=== PATIENT | female | born 2000 | race Caucasian/White ===

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

== ENCOUNTER 2021-01-06 13:30 | Observation (INO) | payer MEDICAID, SELFPAY ==
[2021-01-06] VITALS (13 sets, daily range): BP systolic 94–145; BP diastolic 56–103; PULSE 77–108; RESP 16–18; TEMP 36.2–37.3; O2SAT 93–98; BMI 42.3; BMI 46.4
--- NOTE | 2021-01-06 | APP_PTH ---
PATIENT: NARESH KELLEY LOC: [facility] U#:[id number] AGE/SX: 20/F ROOM: [facility]314 RE01/06/[address]: Dr. Reji Santoro MD : 2000 BED: 1 DIS: 01/07/2021 SPEC #: [id number] RECD: 01/07/21 06:19 STATUS: LY EMA #: [id number] MELVIN: 01/06/21 00:[address]: Reji Santoro DEPT: SURGICAL PATHOLOGY RECD BY: Thierno Raymond ENTERED: 01/07/21 08:31 SP TYPE: APPENDIX OTHR DR: No Primary Care Phys Tissues: Appendix, NOS Procedures: Surgery Specimen Level III HEADER OPERATION: Laparoscopic appendectomy PRE-OP DIAGNOSIS: Acute appendicitis TISSUE SUBMITTED: Appendix MICROSCOPIC DIAGNOSIS Appendix, appendectomy: Acute appendicitis and periappendicitis. ALFA:mayito 01/08/2021 MICROSCOPIC DESCRIPTION Slides are reviewed. GROSS DESCRIPTION Received in fixative is one container labeled with the patient's name and designated appendix. The specimen consists of a C-shaped appendix measuring 7.5 cm in length and up to 1 cm in diameter. The attached periappendiceal adipose tissue measures up to 2 cm in width. The serosa is covered with patel, purulent exudate. No obvious perforation is identified. The mucosa is congested and hemorrhagic. No fecalith is identified. Internal Consultant sections are submitted in one cassette. / SJ:mayito 01/07/21 TC:2 CPT: 98235
[2021-01-06 13:49] LABS: Mucous, Urine 0 SEEN /hpf (<or=2+); Red Blood Cells-Urine 0 SEEN /hpf (0-5); White Blood Cells 0 SEEN /hpf (0-5)
[2021-01-06 13:50] LABS: Absolute Lymphocyte Count 1.86 X10^3/uL (0.83-4.51); Absolute Neutrophil Count 14.4 X10^3/uL (2.0-7.7); Basophil# 0.04 X10^3/uL; Basophil% 0.2 % (0-1); Eosinophil# 0.49 X10^3/uL; Eosinophils% 2.7 % (0-5); Hemoglobin 14.7 g/dL (12.0-15.0); Lymphocyte # 1.86 X10^3/ul (0.83-4.51); Lymphocyte % 10.4 % (19-41); Mean Corp Hgb Conc 34.2 g/dL (32-36); Mean Corpuscular Hgb 29.2 pg (27.0-32.0); Mean Corpuscular Volume 85.5 fL (81-99); Mean Platelet Vol. 9.5 fl (6.2-12.0); Monocyte# 0.99 X10^3/uL; Monocyte% 5.5 % (0-10); NRBC Flagged by Analyzer 0 % (0-5); Neutrophil # 14.41 X10^3/uL (2.7-7.7); Neutrophil % 80.7 % (47-70); Platelet Count 274 K/mm3 (150-450); RBC Distribution Width CV 11.8 % (11.6-14.6); RBC Distribution Width SD 36.1 fl (35.1-43.9); Red Blood Count 5.03 M/mm3 (4.2-5.4); White Blood Count 17.9 K/mm3 (4.4-11.0)
[2021-01-06 13:52] LABS: Color, Urine Yellow (Yellow); Glucose, Dipstick Normal (Normal); Ketone-Dipstick Negative (Negative); Leukocyte Esterase-Dipstick Negative /ul (Negative); Nitrite-Dipstick Negative (Negative); Occult Blood-Urine Negative /ul (Negative); Protein-Dipstick Negative (Negative); Specific Gravity, Urine 1.015 (1.002-1.030); Urine Bilirubin Dipstick Negative (Negative); Urine Clarity Sl. Cloudy (Clear); Urine Urobilinogen Normal (Normal)
[2021-01-06 13:59] LABS: Bacteria 1+ /hpf (None Seen); Squamous Epithelial Cells - UA 0-5 SEEN /hpf (5-10)
[2021-01-06 14:05] LABS: Internal QC Validated? YES +Cl - CLEAR BKGD; Pregnancy, Serum, hCG Quali. NEGATIVE Negative
[2021-01-06 14:07] LABS: ALB/GLOB Ratio 0.9 RATIO (0.9-2.4); AST(SGOT) 14 U/L (15-37); Alanine Aminotransfer ALT/SGPT 29 U/L (13-56); Albumin, Serum 3.6 g/dL (3.2-5.0); Alkaline Phosphatase 90 U/L (45-117); Anion Gap 11 (5-15); BUN 9 mg/dL (7-18); BUN/Creat Ratio 11.9 RATIO (10-20); Calcium,Total 9.1 mg/dL (8.5-10.1); Chloride 103 mmol/L (98-107); Creatinine, Serum 0.76 mg/dL (0.55-1.02); EST Glomerular Filtration Rate 104 mL/min (>60); Est Glom Filt Rate - Afr Amer 126 mL/min (>60); Estimated Creatinine Clearance 115.78 ml/min; Glucose 108 mg/dL (74-106); Protein, Total 7.6 g/dL (6.4-8.2); Sodium Level 138 mmol/L (136-145)
--- NOTE | 2021-01-06 14:08 | CT_ITS ---
STUDY: CT ABDOMEN AND PELVIS WITH CONTRAST REASON FOR EXAM: Female, 20 years old. Right lower quadrant pain since this morning. Vomiting. RADIATION DOSAGE (If Supplied By Facility): CTDIvol = ( 15.67 ) mGy, DLP = ( 1248.72 ) mGycm TECHNIQUE: Transaxial images were obtained from the dome of the diaphragm to the symphysis pubis without oral contrast. IV 100ML ISOVUE 300 was administered. Sagittal and coronal images were reconstructed. Individualized dose optimization techniques were used for this CT. COMPARISON: None. FINDINGS: The visualized lung bases are unremarkable. The visualized portions of the heart are within normal limits. Normal liver. Normal gallbladder and extrahepatic biliary system. Normal spleen. Normal pancreas. Normal bilateral adrenal glands. Normal right kidney. Normal left kidney. There is a small hiatal hernia. Normal small intestine. Normal colon. There is a tubular, thick-walled appendix (>7mm), consistent with acute appendicitis. Small benign-appearing lymph nodes are seen in the mesenteric fat in the right lower quadrant. Normal abdominal aorta. Normal inferior vena cava. Normal retroperitoneum. Normal urinary bladder. There is a 3.2 cm x 2.3 cm cyst in the left ovary. There is a 2.3 cm x 1.5 cm right ovarian cyst. Normal abdominal wall. Normal osseous structures. CT/Abdomen/Pelvis W IV Cont ONLY IMPRESSION: Findings in keeping with noncomplicated acute appendicitis. Small lymph nodes are seen in the mesenteric fat in the right lower quadrant. Small bilateral ovarian cysts. Electronically Signed: Humberto Kiser MD at 14:55 EDT , Service support ,
--- NOTE | 2021-01-06 14:09 | EDS_ITS ---
HPI HPI - GI History of Present Illness Chief Complaint: Abd Pain Informant: patient Abdominal Pain/Flank Pain Onset: Today Context: Sudden Onset Timing: Continuous Quality: Cramping and Sharp Location: Diffuse Current Severity: Mild Maximum Severity: Moderate Nausea/Vomiting/Emesis GI Symptom: Positive for Nausea and Vomiting Onset: Today Quality: Positive for Nonbilious; Negative for Blood streaks Severity: Mild Diarrhea/Melena/Hematochezia GI Symptom: Negative for Diarrhea and Melena Associated Symptoms Associated Symptoms: Negative for Dysuria, Frequency and Hematuria Narrative Narrative: 20-year-old female no significant past medical nor any past surgical history. States that around 3 AM this morning she was awoken by abdominal pain. Says it is worse epigastric but is also in the right upper quadrant. Associated nausea and vomiting. No diarrhea or constipation. No melena. No fever. No vaginal bleeding or discharge. States she is on control and does not have periods. She denies any fever or chills. No dysuria. Denies any abdominal trauma. Nothing specifically makes it better or worse. States she is never had abdominal pain like this before. Prior similar symptoms: No Recent Illness/Hospitalization: No PFSH PFSH no medical history Home Medications NK 01/06/21 [History Last Taken Unknown] Allergy/AdvReac Type Severity Reaction Status Date / Time No Known Allergies Allergy Verified 01/06/21 13:33 no surgical history Social History Smoking Status: Current every day smoker tobacco type: cigarettes ROS ROS ED ROS Narrative Abdominal pain with nausea and vomiting. Review of Systems ROS Unobtainable: Denies due to encephalopathy Constitutional Constitutional ED: Denies chills or fever(s) ENT ENT ED: Denies ear pain or sore throat Cardiovascular Cardiovascular: Denies chest pain or palpitations Respiratory/Chest Respiratory/Chest: Denies cough or dyspnea Gastrointestinal Gastrointestinal: Reports abdominal pain, nausea and vomiting; Denies constipation, diarrhea or melena Genitourinary Genitourinary ED: Denies dysuria or hematuria Musculoskeletal Musculoskeletal: Denies arthralgias or myalgias Integumentary Denies abscess or rash Neurologic Neurologic: Denies headache(s) Psychiatric Psychiatric: Denies depression Endocrine Endocrinology: Denies polyuria Hematologic/Lymphatic Hematologic/Lymphatic: Denies easy bruising Allergic/Immunologic Allergic/Immunologic ED: Denies urticaria EXAM Physical Exam Narrative Exam Narrative: Young female no acute distress. Significant other in the room. Vital signs stable afebrile. Exam normal except diffuse abdominal tenderness more so in epigastric region. No rebound, guarding rigidity. No distention. No signs of obstruction. Soft positive bowel sounds. Back nontender. Otherwise exam unremarkable. Const Vital Signs: 01/06/21 13:31 Temperature 97.6 F L Temperature Source Temporal Pulse Rate 108 H Respiratory Rate 16 Blood Pressure 145/83 H Blood Pressure Mean 103 Pulse Ox 96 Oxygen Delivery Method Room Air HEENT Reports moist mucous membranes normocephalic and atraumatic; Negative for trauma or tenderness Eyes PERRL and EOMs intact bilaterally Neck no lymphadenopathy, supple and no JVD General: Negative for tenderness Resp normal respiratory effort and clear to auscultation bilaterally Cardio regular rate, regular rhythm, S1 normal heart sound, S2 normal heart sound and no murmurs Rate: Negative for bradycardia or tachycardic GI non-distended and no masses Inspection: Negative for abdominal distention Auscultation: normoactive bowel sounds; Negative for hyperactive bowel sounds or hypoactive bowel sounds Palpation: soft and tender; Negative for guarding, rigid or rebound tenderness present Back/Spine no CVA tenderness Extremity full ROM General Extremety ED: Negative for edema or tenderness General Extremity: Negative for edema Neuro CN's II-XII intact bilaterally and moves all extremities Sensorium / Orientation: alert, oriented to person, oriented to place, oriented to time and orientation impaired Psych mental status grossly normal Skin Rashes: no rashes MDM MDM MDM Narrative Medical decision making narrative: 20-year-old female with diffuse abdominal pain started at 3 AM. No prior surgery. She undergo screening labs. CAT scan. She will receive IV fluids, morphine, Toradol and Zofran. Her test is negative. After getting the test results and CAT scan back of already spoken to general surgery on-call and he will be in to see the patient and take the patient to the operating room. Patient be started on Zosyn. I have already discussed this with the patient. Lab Data Attestation: I reviewed the patient's lab results. Lab results narrative: White count elevated 17.9. Normal hemoglobin of 14. Electrolytes unremarkable normal gap. Normal creatinine. Liver enzymes normal. UA negative. Serum test negative. Lipase normal. CT is consistent with acute appendicitis is read per the radiologist and reviewed by me. Labs: Laboratory Results - last 24 hr 01/06/21 01/06/21 01/06/21 13:30 13:30 13:30 WBC 17.9 H RBC 5.03 Hgb 14.7 Hct 43.0 MCV 85.5 MCH 29.2 MCHC 34.2 RDW Std Deviation 36.1 RDW Coeff of Zohra 11.8 Plt Count 274 MPV 9.5 Immature Gran % (Auto) 0.500 Neut % (Auto) 80.7 H Lymph % (Auto) 10.4 L [place] % (Auto) 5.5 Eos % (Auto) 2.7 Baso % (Auto) 0.2 Absolute Neuts (auto) 14.4 H Absolute Lymphs (auto) 1.86 Nucleated RBC % 0 Sodium 138 Potassium 4.0 Chloride 103 Carbon Dioxide 24.0 Anion Gap 11 BUN 9 Creatinine 0.76 Estim Creat Clear Calc 115.78 Est GFR (MDRD) Af Amer 126 Est GFR (MDRD) Non-Af 104 BUN/Creatinine Ratio 11.9 Glucose 108 H Calcium 9.1 Total Bilirubin 0.50 AST 14 L ALT 29 Alkaline Phosphatase 90 Total Protein 7.6 Albumin 3.6 Globulin 4.0 Albumin/Globulin Ratio 0.9 Lipase Serum , Qual Urine Color Yellow Urine Clarity Sl. Cloudy Urine pH 6.0 Ur Specific [place] 1.015 Urine Protein Negative Urine Glucose (UA) Normal Urine Ketones Negative Urine Occult Blood Negative Urine Nitrite Negative Urine Bilirubin Negative Urine Urobilinogen Normal Ur Leukocyte Esterase Negative Urine RBC 0 SEEN Urine WBC 0 SEEN Ur Squamous Epith Cells 0-5 SEEN Urine Bacteria 1+ Urine Mucus 0 SEEN 01/06/21 01/06/21 13:30 13:30 WBC RBC Hgb Hct MCV MCH MCHC RDW Std Deviation RDW Coeff of Zohra Plt Count MPV Immature Gran % (Auto) Neut % (Auto) Lymph % (Auto) [place] % (Auto) Eos % (Auto) Baso % (Auto) Absolute Neuts (auto) Absolute Lymphs (auto) Nucleated RBC % Sodium Potassium Chloride Carbon Dioxide Anion Gap BUN Creatinine Estim Creat Clear Calc Est GFR (MDRD) Af Amer Est GFR (MDRD) Non-Af BUN/Creatinine Ratio Glucose Calcium Total Bilirubin AST ALT Alkaline Phosphatase Total Protein Albumin Globulin Albumin/Globulin Ratio Lipase 35 L Serum , Qual NEGATIVE Urine Color Urine Clarity Urine pH Ur Specific [place] Urine Protein Urine Glucose (UA) Urine Ketones Urine Occult Blood Urine Nitrite Urine Bilirubin Urine Urobilinogen Ur Leukocyte Esterase Urine RBC Urine WBC Ur Squamous Epith Cells Urine Bacteria Urine Mucus Radiography Diagnostic Testing: Radiology Impression Abdomen/Pelvis CT 01/06/21 14:08 IMPRESSION: Findings in keeping with noncomplicated acute appendicitis. Small lymph nodes are seen in the mesenteric fat in the right lower quadrant. Small bilateral ovarian cysts. Electronically Signed: Humberto Kiser MD at 14:55 EDT , Service support , Discharge Plan Triage Chief Complaint: Abd Pain ED Provider: Jorge Crisostomo Dx/Rx/DC Orders Clinical Impression: Acute appendicitis Prescriptions: No Action NK RF: 0 Primary Care Provider: Care Physician,No Primary Referrals: Care Physician,No Primary [Primary Care Provider] -
[2021-01-06] MEDS: 0.9% Normal Saline 1,000 ML 1000 ML IV (14:18)
[2021-01-06] MEDS: Ondansetron 4 MG/2 ML Vial IV (14:18)
[2021-01-06] MEDS: Ketorolac 30 MG/ML Syringe IV (14:19)
[2021-01-06] MEDS: morphine 8 MG/ML Syringe 6 MG IV (14:19)
[2021-01-06 14:26] LABS: Lipase 35 U/L (73-393)
--- NOTE | 2021-01-06 15:45 | NURSING ---
OR, AC 5 CALABRETTA APPENDICITIS
--- NOTE | 2021-01-06 16:17 | HP.PCM.SX_ITS ---
HPI - General HPI Narrative NARESH KELLEY, is a 20 F who presents to the emergency with right lower quadrant pain that started 3 AM this morning. Patient does report nausea and vomiting. No fevers or chills. The pain is in the right lower quadrant. [facility] Home Medications ibuprofen 800 mg PO DAILY PRN 01/06/21 [History Last Taken 01/06/21 03:00] Allergy/AdvReac Type Severity Reaction Status Date / Time No Known Allergies Allergy Verified 01/06/21 13:33 Social History Smoking Status: Current every day smoker tobacco type: cigarettes ROS Constitutional Constitutional: Denies anorexia, chills or fever(s) Cardiovascular Cardiovascular: Denies chest pain Respiratory/Chest Respiratory/Chest: Denies cough or dyspnea Gastrointestinal Gastrointestinal: Reports abdominal pain, nausea and vomiting; Denies constipation, diarrhea, dysphagia or hematemesis Genitourinary Genitourinary: Denies change in urinary stream Musculoskeletal Musculoskeletal: Denies abnormal gait Integumentary Integumentary: Denies jaundice Neurologic Neurologic: Denies abnormal gait Psychiatric Psychiatric: Denies anxiety Endocrine Endocrinology: Denies flushing Hematologic/Lymphatic Hematologic/Lymphatic: Denies easy bleeding Vital Signs Vital Signs Vital Signs: 01/06/21 13:31 01/06/21 15:41 Temperature 97.6 F L 99.1 F Temperature Source Temporal Oral Pulse Rate 108 H 83 Respiratory Rate 16 16 Blood Pressure 145/83 H 103/56 L Blood Pressure Mean 103 71 Pulse Ox 96 98 Oxygen Delivery Method Room Air Room Air Weight Weight: 270 lb Body Mass Index (BMI) 42.3 Physical Exam Const oriented x3 and no apparent distress Resp normal respiratory effort Cardio regular rate and regular rhythm GI soft to palpation Palpation: tender RLQ Extremity normal to inspection Results Lab / Micro Data Result Diagrams: 01/06/21 13:30 01/06/21 13:30 Labs: Laboratory Results - last 24 hr 01/06/21 01/06/21 01/06/21 13:30 13:30 13:30 WBC 17.9 H RBC 5.03 Hgb 14.7 Hct 43.0 MCV 85.5 MCH 29.2 MCHC 34.2 RDW Std Deviation 36.1 RDW Coeff of Zohra 11.8 Plt Count 274 MPV 9.5 Immature Gran % (Auto) 0.500 Neut % (Auto) 80.7 H Lymph % (Auto) 10.4 L [place] % (Auto) 5.5 Eos % (Auto) 2.7 Baso % (Auto) 0.2 Absolute Neuts (auto) 14.4 H Absolute Lymphs (auto) 1.86 Nucleated RBC % 0 Sodium 138 Potassium 4.0 Chloride 103 Carbon Dioxide 24.0 Anion Gap 11 BUN 9 Creatinine 0.76 Estim Creat Clear Calc 115.78 Est GFR (MDRD) Af Amer 126 Est GFR (MDRD) Non-Af 104 BUN/Creatinine Ratio 11.9 Glucose 108 H Calcium 9.1 Total Bilirubin 0.50 AST 14 L ALT 29 Alkaline Phosphatase 90 Total Protein 7.6 Albumin 3.6 Globulin 4.0 Albumin/Globulin Ratio 0.9 Lipase Serum , Qual Urine Color Yellow Urine Clarity Sl. Cloudy Urine pH 6.0 Ur Specific [place] 1.015 Urine Protein Negative Urine Glucose (UA) Normal Urine Ketones Negative Urine Occult Blood Negative Urine Nitrite Negative Urine Bilirubin Negative Urine Urobilinogen Normal Ur Leukocyte Esterase Negative Urine RBC 0 SEEN Urine WBC 0 SEEN Ur Squamous Epith Cells 0-5 SEEN Urine Bacteria 1+ Urine Mucus 0 SEEN 01/06/21 01/06/21 13:30 13:30 WBC RBC Hgb Hct MCV MCH MCHC RDW Std Deviation RDW Coeff of Zohra Plt Count MPV Immature Gran % (Auto) Neut % (Auto) Lymph % (Auto) [place] % (Auto) Eos % (Auto) Baso % (Auto) Absolute Neuts (auto) Absolute Lymphs (auto) Nucleated RBC % Sodium Potassium Chloride Carbon Dioxide Anion Gap BUN Creatinine Estim Creat Clear Calc Est GFR (MDRD) Af Amer Est GFR (MDRD) Non-Af BUN/Creatinine Ratio Glucose Calcium Total Bilirubin AST ALT Alkaline Phosphatase Total Protein Albumin Globulin Albumin/Globulin Ratio Lipase 35 L Serum , Qual NEGATIVE Urine Color Urine Clarity Urine pH Ur Specific [place] Urine Protein Urine Glucose (UA) Urine Ketones Urine Occult Blood Urine Nitrite Urine Bilirubin Urine Urobilinogen Ur Leukocyte Esterase Urine RBC Urine WBC Ur Squamous Epith Cells Urine Bacteria Urine Mucus Radiology Impression Abdomen/Pelvis CT 01/06/21 14:08 IMPRESSION: Findings in keeping with noncomplicated acute appendicitis. Small lymph nodes are seen in the mesenteric fat in the right lower quadrant. Small bilateral ovarian cysts. Electronically Signed: Humberto Kiser MD at 14:55 EDT , Service support , Assessment & Plan Assessment/Plan (1) Acute appendicitis: QUALIFIERS: Acute appendicitis type: unspecified acute appendicitis type Qualified Code(s): K35.80 - Unspecified acute appendicitis PLAN: The patient has right lower quadrant pain a CT scan which shows inflamed appendix. The white count is elevated as well. I discussed laparoscopic appendectomy with the patient in detail. I discussed the procedure as well as the risks including not limited to bleeding, infection, injury other organs such as the colon, bladder, ureters, small bowel. The patient understands the risks and is we will proceed with laparoscopic appendectomy. The patient will be admitted postoperatively for care. Reji Santoro MD Pager: [facility] [address] [place] [address], [address] [place] [address] Office:
[2021-01-06] MEDS: Bupiv/Epi 0.25% 30 ML Vial (17:37)
--- NOTE | 2021-01-06 17:45 | PCM.OPRPT ---
Problems Associated Problem List Diagnoses (1) Acute appendicitis: Report of Operation Date of Procedure: 01/06/21 Pre-Operative Diagnosis: Acute appendicitis Post-Operative Diagnosis: Same Surgery/Procedure Performed:: Laparoscopic appendectomy Description of Surgical Findings:: Inflamed appendix Specimen's removed: Appendix Description of Procedure: The patient was brought into the operating room and general anesthesia was induced. The left arm was tucked and the abdomen was prepped and draped in usual sterile fashion. A small midline incision was made superior to the umbilicus. A 5 mm port with a 0 degree scope was used to enter the abdomen using Visiport technique. The abdomen was insufflated to 15 mmHg and the camera was inserted and the abdomen was inspected for any injuries upon entering the abdomen. There were none. Under direct visualization a 5 mm port was placed in the left lower quadrant and the suprapubic area. The midline port was upsized to a 12 mm port. The patient was placed in Trendelenburg position. Next using atraumatic bowel graspers the appendix was identified. The appendix was grasped and elevated and Enseal was used to take down the mesoappendix. A stapler was used to come across the base of the appendix. The appendix was then placed in Endo Catch bag and removed through the umbilical incision. There was a small amount of bleeding from the staple line and a titanium clip was used to stop this. The staple line was then hemostatic. The umbilical incision fascia was closed laparoscopically with an 0 Vicryl [id number] suture using a Juan Berry needle. The air was allowed to escape the abdomen and the 5 mm ports were removed. The incisions were then irrigated with saline and dried. Local anesthetic was injected into the incision sites. The skin incisions were then closed with interrupted 4-0 Monocryl suture and Steri-Strips. Bandages were applied and the patient was awoken and taken to PACU in stable condition. Patient tolerated the procedure well. Admit VTE Documentation VTE Mechan Device Prophylaxis: SCD's
[2021-01-06] MEDS: Acetaminophen 325 MG Tablet 650 MG PO (19:38)
[2021-01-06] MEDS: 0.9% Normal Saline 1,000 ML 60 ML IV (19:38)
[2021-01-06] MEDS: oxyCODONE 5 MG Tablet PO (20:30)
[2021-01-06] MEDS: Docusate Sodium 100 MG Capsule PO (20:34)
[2021-01-07 02:41] VITALS: BP 107/50; PULSE 90; RESP 16; TEMP 36.9; O2SAT 96
[2021-01-07 06:25] VITALS: BP 90/58; PULSE 90; RESP 16; TEMP 36.7; O2SAT 96
--- NOTE | 2021-01-07 07:31 | PN.SURG_ITS ---
Subjective Subjective Patient reports that her pain is very well controlled on Tylenol. No nausea or vomiting and tolerated some regular food. Objective Data Objective Data Vital Signs: Vital Signs Temp Pulse Resp BP Pulse Ox 98.1 F 90 16 90/58 L 96 01/07/21 06:25 01/07/21 06:25 01/07/21 06:25 01/07/21 06:25 01/07/21 06:25 Oxygen Delivery Method Room Air Weight: 296 lb Body Mass Index (BMI) 46.4 Intake & Output: Intake and Output for Last 24 Hours 01/05/21 01/06/21 01/07/21 23:59 23:59 23:59 Intake Total 1100 / 2700 1800 / 1800 Output Total 600 / 600 Balance 1100 / 2400 1200 / 1200 Lab / Micro Data Result Diagrams: 01/06/21 13:30 01/06/21 13:30 Labs: Laboratory Results - last 24 hr 01/06/21 01/06/21 01/06/21 13:30 13:30 13:30 WBC 17.9 H RBC 5.03 Hgb 14.7 Hct 43.0 MCV 85.5 MCH 29.2 MCHC 34.2 RDW Std Deviation 36.1 RDW Coeff of Zohra 11.8 Plt Count 274 MPV 9.5 Immature Gran % (Auto) 0.500 Neut % (Auto) 80.7 H Lymph % (Auto) 10.4 L [place] % (Auto) 5.5 Eos % (Auto) 2.7 Baso % (Auto) 0.2 Absolute Neuts (auto) 14.4 H Absolute Lymphs (auto) 1.86 Nucleated RBC % 0 Sodium 138 Potassium 4.0 Chloride 103 Carbon Dioxide 24.0 Anion Gap 11 BUN 9 Creatinine 0.76 Estim Creat Clear Calc 115.78 Est GFR (MDRD) Af Amer 126 Est GFR (MDRD) Non-Af 104 BUN/Creatinine Ratio 11.9 Glucose 108 H Calcium 9.1 Total Bilirubin 0.50 AST 14 L ALT 29 Alkaline Phosphatase 90 Total Protein 7.6 Albumin 3.6 Globulin 4.0 Albumin/Globulin Ratio 0.9 Lipase Serum , Qual Urine Color Yellow Urine Clarity Sl. Cloudy Urine pH 6.0 Ur Specific [place] 1.015 Urine Protein Negative Urine Glucose (UA) Normal Urine Ketones Negative Urine Occult Blood Negative Urine Nitrite Negative Urine Bilirubin Negative Urine Urobilinogen Normal Ur Leukocyte Esterase Negative Urine RBC 0 SEEN Urine WBC 0 SEEN Ur Squamous Epith Cells 0-5 SEEN Urine Bacteria 1+ Urine Mucus 0 SEEN 01/06/21 01/06/21 13:30 13:30 WBC RBC Hgb Hct MCV MCH MCHC RDW Std Deviation RDW Coeff of Zohra Plt Count MPV Immature Gran % (Auto) Neut % (Auto) Lymph % (Auto) [place] % (Auto) Eos % (Auto) Baso % (Auto) Absolute Neuts (auto) Absolute Lymphs (auto) Nucleated RBC % Sodium Potassium Chloride Carbon Dioxide Anion Gap BUN Creatinine Estim Creat Clear Calc Est GFR (MDRD) Af Amer Est GFR (MDRD) Non-Af BUN/Creatinine Ratio Glucose Calcium Total Bilirubin AST ALT Alkaline Phosphatase Total Protein Albumin Globulin Albumin/Globulin Ratio Lipase 35 L Serum , Qual NEGATIVE Urine Color Urine Clarity Urine pH Ur Specific [place] Urine Protein Urine Glucose (UA) Urine Ketones Urine Occult Blood Urine Nitrite Urine Bilirubin Urine Urobilinogen Ur Leukocyte Esterase Urine RBC Urine WBC Ur Squamous Epith Cells Urine Bacteria Urine Mucus Micro: Microbiology 01/06/21 16:10 Mucosa - Nose SARS-CoV-2 Antigen (Rapid) - Final Radiography Diagnostic Testing: Radiology Impression Abdomen/Pelvis CT 01/06/21 14:08 IMPRESSION: Findings in keeping with noncomplicated acute appendicitis. Small lymph nodes are seen in the mesenteric fat in the right lower quadrant. Small bilateral ovarian cysts. Electronically Signed: Humberto Kiser MD at 14:55 EDT , Service support , Physical Exam Const oriented x3 and no apparent distress Resp normal respiratory effort Cardio regular rate and regular rhythm GI soft to palpation and non-tender Assessment & Plan Assessment/Plan (1) Acute appendicitis: QUALIFIERS: Acute appendicitis type: unspecified acute appendicitis type Qualified Code(s): K35.80 - Unspecified acute appendicitis PLAN: Patient is doing well after laparoscopic appendectomy. Plan for discharge this morning. Follow-up in 2 weeks. Reji Santoro MD Pager: [facility] [address] [place] [address], [address] [place] [address] Office:
--- NOTE | 2021-01-07 07:32 | PCM.DC.SUM ---
Providers Date of Admission: 01/06/21 Primary Care Physician: Ewelina Primary Care Phys Reason For Visit: APPENDICITIS Diagnosis Discharge Diagnosis (1) Acute appendicitis: Status: Acute Code(s): K35.80 - Unspecified acute appendicitis Qualifiers: Acute appendicitis type: unspecified acute appendicitis type Qualified Code(s): K35.80 - Unspecified acute appendicitis Medications at Discharge Home Medications ibuprofen 800 mg PO DAILY PRN 01/06/21 acetaminophen [Tylenol] 650 mg PO Q4H PRN PRN #0 tab 01/07/21 Hospital Course Summary of Care Provided Hospital Course: Patient was admitted with acute appendicitis and taken for laparoscopic appendectomy. Surgery well and the following morning she was doing well and tolerating a diet and discharged home. Weight / BMI Weight Weight: 296 lb Body Mass Index (BMI) 46.4 ABG / Lab / Microbiology Data Result Diagrams: 01/06/21 13:30 01/06/21 13:30 Laboratory: Laboratory Results - last 24 hr 01/06/21 01/06/21 01/06/21 13:30 13:30 13:30 WBC 17.9 H RBC 5.03 Hgb 14.7 Hct 43.0 MCV 85.5 MCH 29.2 MCHC 34.2 RDW Std Deviation 36.1 RDW Coeff of Zohra 11.8 Plt Count 274 MPV 9.5 Immature Gran % (Auto) 0.500 Neut % (Auto) 80.7 H Lymph % (Auto) 10.4 L [place] % (Auto) 5.5 Eos % (Auto) 2.7 Baso % (Auto) 0.2 Absolute Neuts (auto) 14.4 H Absolute Lymphs (auto) 1.86 Nucleated RBC % 0 Sodium 138 Potassium 4.0 Chloride 103 Carbon Dioxide 24.0 Anion Gap 11 BUN 9 Creatinine 0.76 Estim Creat Clear Calc 115.78 Est GFR (MDRD) Af Amer 126 Est GFR (MDRD) Non-Af 104 BUN/Creatinine Ratio 11.9 Glucose 108 H Calcium 9.1 Total Bilirubin 0.50 AST 14 L ALT 29 Alkaline Phosphatase 90 Total Protein 7.6 Albumin 3.6 Globulin 4.0 Albumin/Globulin Ratio 0.9 Lipase Serum , Qual Urine Color Yellow Urine Clarity Sl. Cloudy Urine pH 6.0 Ur Specific [place] 1.015 Urine Protein Negative Urine Glucose (UA) Normal Urine Ketones Negative Urine Occult Blood Negative Urine Nitrite Negative Urine Bilirubin Negative Urine Urobilinogen Normal Ur Leukocyte Esterase Negative Urine RBC 0 SEEN Urine WBC 0 SEEN Ur Squamous Epith Cells 0-5 SEEN Urine Bacteria 1+ Urine Mucus 0 SEEN 01/06/21 01/06/21 13:30 13:30 WBC RBC Hgb Hct MCV MCH MCHC RDW Std Deviation RDW Coeff of Zohra Plt Count MPV Immature Gran % (Auto) Neut % (Auto) Lymph % (Auto) [place] % (Auto) Eos % (Auto) Baso % (Auto) Absolute Neuts (auto) Absolute Lymphs (auto) Nucleated RBC % Sodium Potassium Chloride Carbon Dioxide Anion Gap BUN Creatinine Estim Creat Clear Calc Est GFR (MDRD) Af Amer Est GFR (MDRD) Non-Af BUN/Creatinine Ratio Glucose Calcium Total Bilirubin AST ALT Alkaline Phosphatase Total Protein Albumin Globulin Albumin/Globulin Ratio Lipase 35 L Serum , Qual NEGATIVE Urine Color Urine Clarity Urine pH Ur Specific [place] Urine Protein Urine Glucose (UA) Urine Ketones Urine Occult Blood Urine Nitrite Urine Bilirubin Urine Urobilinogen Ur Leukocyte Esterase Urine RBC Urine WBC Ur Squamous Epith Cells Urine Bacteria Urine Mucus Microbiology: Microbiology 01/06/21 16:10 SARS-CoV-2 Antigen (Rapid) - Final Mucosa - Nose Microbiology 01/06/21 16:10 Mucosa - Nose SARS-CoV-2 Antigen (Rapid) - Final Radiography Diagnostic Testing: Radiology Impression Abdomen/Pelvis CT 01/06/21 14:08 IMPRESSION: Findings in keeping with noncomplicated acute appendicitis. Small lymph nodes are seen in the mesenteric fat in the right lower quadrant. Small bilateral ovarian cysts. Electronically Signed: Humberto Kiser MD at 14:55 EDT , Service support , D/C Instructions Discharge Diet: Light diet - advance as tolerated Discharge Activity: May Not Drive (for 2-3 days or while taking narcotic pain medications.) and May Not Shower Lifting Restricted to (Lbs): 20 (for 2 weeks) Call your doctor if your incision/area has: Continuous Slow Oozing, Sudden Increased Bleeding, Increased Pain/ Swelling, Increased Redness and Foul Smelling Discharge Call your doctor if you observe: Fever of 101 or Higher Suture Line Care: Avoid Pulling/Pushing and Avoid Pinching/Bending Cleanse incision/area with: Soap & Water Additional Dressing/Incision Instructions: Keep dressing clean and dry. Change or remove dressing in 2 days. Leave steri strips for 1 week. May protect with a gauze bandaid. Please Follow Up With: Reji Santoro MD When: Please call to schedule 2 week follow up appointment. [phone] Meaningful Use Info Meaningful Use Diagnoses (Choose all that apply): None applicable Discharge Plan Admission Admit Date/Time: 01/06/21 17:56 Attending Provider: Reji Santoro Primary Care Provider: Care Physician,Ewelina Primary Discharge Orders/Prescriptions Prescriptions: New acetaminophen [Tylenol] 325 mg Tablet 650 mg PO Q4H PRN PRN (Reason: PAIN 1-10/FEVER) Qty: 0 RF: 0 Continued ibuprofen 200 mg Tablet 800 mg PO DAILY PRN (Reason: Pain) RF: 0 Referrals / Follow Up: Care Physician,No Primary [Primary Care Provider] - Disposition Disposition (needs filled in before D/C Order can be placed): Home, self care
[2021-01-07 10:15] VITALS: BP 129/85; PULSE 92; RESP 16; TEMP 36.6; O2SAT 95
[2021-01-07] MEDS: Acetaminophen 325 MG Tablet 650 MG PO (10:25)
[2021-01-07] MEDS: Docusate Sodium 100 MG Capsule PO (10:26)
== END 2021-01-07 10:33 | disposition home or self-care (01) ==
LOC: ED 15:39 → SDC 15:45 → AC 15:45 → MS3 17:33 → SDC 18:22 → MS3 18:22
PROVIDERS: Admitting Provider Surgery; Emergency Provider Emergency Medicine; Visit Provider Surgery
PROC: 0DTJ4ZZ Resection of Appendix, Percutaneous Endoscopic Approach (ICD-10-PCS; CPT 44970; principal; 2021-01-06 16:00)
DX: K35.80 Unspecified acute appendicitis (principal); Z79.3 Long term (current) use of hormonal contraceptives; F17.210 Nicotine dependence, cigarettes, uncomplicated
CPT/HCPCS: 00840; 44970; 74177; 80053; 81001; 83690; 84703; 85025; 87426; 88304; 96374; 96375; 99218; 99251; 99284; J7030; Q9967; A4216; C1760; G0378; G0463; J2405

== ENCOUNTER 2021-11-03 15:20 | Outpatient (CLI) | payer MEDICAID, SELFPAY ==
[2021-11-03 17:37] LABS: Hematocrit 42.8 % (37-47); Hemoglobin 14.8 g/dL (12.0-15.0); Mean Corp Hgb Conc 34.6 g/dL (32-36); Mean Corpuscular Hgb 29.7 pg (27.0-32.0); Mean Corpuscular Volume 85.9 fL (81-99); Mean Platelet Vol. 10.2 fl (6.2-12.0); Platelet Count 304 K/mm3 (150-450); RBC Distribution Width CV 11.8 % (11.6-14.6); RBC Distribution Width SD 36.9 fl (35.1-43.9); Red Blood Count 4.98 M/mm3 (4.2-5.4); White Blood Count 9.4 K/mm3 (4.4-11.0)
[2021-11-03 17:50] LABS: Estradiol 61.2 pg/mL; Follicle Stimulating Hormone 2.3 mIU/mL; Luteinizing Hormone 3.9 mIU/mL; Prolactin 15.7 ng/mL; T4 Free Direct 0.96 ng/dL (0.76-1.46); Thyroid Stim Hormone (TSH) 1.82 uIU/mL (0.358-3.74)
[2021-11-07 13:44] LABS: Testosterone Free 2.1 pg/mL (0.0-4.2)
== END 2021-11-03 23:59 | disposition home or self-care (01) ==
LOC: WOBLAB 15:21
PROVIDERS: Visit Provider Obstetrics & Gynecology
DX: N93.9 Abnormal uterine and vaginal bleeding, unspecified (principal)
CPT/HCPCS: 36415; 82670; 83001; 83002; 84146; 84402; 84439; 84443; 85027